=== PATIENT | male | born 1975 | race Hispanic/Latino ===

== ENCOUNTER → 2019-06-25 | Outpatient (CLI) | payer OTHER ==
[~2019-06-25] MED LIST: ASPI81TA3 OR; HYDR50TA8 OR; MIRT1TAB21 OR; SERT100T OR; WELL100T OR
--- NOTE | 2019-06-26 01:04 | REP ---
Clinical: Hand injury. Technique: AP, lateral, bilateral oblique views of the right hand. Findings: Age-related changes are appreciated along with evidence for old healed fifth metacarpal bone fracture. No acute fracture or dislocation identified. No subcutaneous emphysema or radiodense foreign body. Findings: Degenerative changes and old fifth metacarpal bone fracture. No acute fracture dislocation. Electronically Signed by Frank Mata MD 06/26/2019 12:55 A
== END ==
LOC: M WUC 19:06
PROVIDERS: ATTEND Physician Assistant
DX: M19.041 Primary osteoarthritis, right hand (principal); M79.641 Pain in right hand

== ENCOUNTER 2021-09-05 17:34 | Emergency (ER) | payer OTHER ==
[~2021-09-05] VITALS: Ht 165.1 cm; Wt 68.2 kg
--- OUTSIDE RECORDS SUMMARY | 2021-09-05 17:44 | CCD ---
Author Author [facility] Organization [facility] Address Unknown Phone Unavailable Support Name Relationship Address Phone NO, ONE Next Of Kin Unknown KYLEJUDE Next Of Kin [address] [place] [address] [place] [address] Unavailable [employer] [address] [place] [address] JESSICAMICHELE LOUIS Next Of Kin [address] [place] [address] Unavailable Re-disclosure Warning The records that you are about to access may contain information from federally-assisted alcohol or drug abuse programs. If such information is present, then the following federally mandated warning applies: This information has been disclosed to you from records protected by federal confidentiality rules (42 CFR part 2). The federal rules prohibit you from making any further disclosure of this information unless further disclosure is expressly permitted by the written consent of the person to whom it pertains or as otherwise permitted by 42 CFR part 2. A general authorization for the release of medical or other information is NOT sufficient for this purpose. The Federal rules restrict any use of the information to criminally investigate or prosecute any alcohol or drug abuse patient.The records that you are about to access may contain highly sensitive health information, the redisclosure of which is protected by Article 27-F of the [facility] Public Health law. If you continue you may have access to information: Regarding HIV / AIDS; Provided by facilities licensed or operated by the [facility] Office of Mental Health; or Provided by the [facility] Office for People With Developmental Disabilities. If such information is present, then the following [facility] mandated warning applies: This information has been disclosed to you from confidential records which are protected by state law. State law prohibits you from making any further disclosure of this information without the specific written consent of the person to whom it pertains, or as otherwise permitted by law. Any unauthorized further disclosure in violation of state law may result in a fine or half-way sentence or both. A general authorization for the release of medical or other information is NOT sufficient authorization for further disc losure. Medications No Information Insurance Providers Payer name Policy type / Coverage type Policy ID Covered republican ID Covered republican's relationship to arellano Policy [place]llano Plan Information [employer] [id number] SP [id number] [facility] [place] [id number] S [id number] [facility] [id number] SP [id number] ADMINSTRATION -O/P [id number] 18 [id number] PGBA SARLES ELIZABETH O [id number] S [id number] ACTIVE DUTY [id number] SP [id number] Problems, Conditions, and Diagnoses No Information Surgeries/Procedures No Information Results ID Date Data Source [id number] 07/03/2021 12:00:00 AM EDT [facility] Name Value Range Interpretation Code Description Data Alea rce(s) Supporting Document(s) SARS-CoV2 Rapid Antigen Negative [facility] This lab was ordered by [facility] and reported by [facility]. ID Date Data Source [id number] 12/08/2020 12:00:00 AM EST [facility] Name Value Range Interpretation Code Description Data Alea rce(s) Supporting Document(s) SARS-CoV2 Rapid Antigen Negative [facility] This lab was ordered by [facility] and reported by [facility]. Procedure Social History No Information
[2021-09-05] MEDS ORDERED: PROZ20CA11 PO (17:45)
[2021-09-05 18:17] LABS: BASO % 0.3 % (0.0-1.0); EOS % 0.2 % (0.0-3.0); LYMPH # 1.1 10^3/uL (1.5-5.0); LYMPH % 9.1 % (24.0-44.0); MEAN CORPUSCULAR HEMOGLOBIN 28.9 pg (27.0-33.0); MEAN CORPUSCULAR VOLUME 84.8 fl (80.0-96.0); MONO # 0.6 10^3/uL (0.0-0.8); MONO % 4.9 % (2.0-8.0); NEUTROPHILS # 10.2 10^3/uL (1.5-8.5); NEUTROPHILS % 85.1 % (36.0-66.0); PLATELET COUNT, AUTOMATED 257 10^3/uL (150-450); RED BLOOD COUNT 5.54 10^6/uL (4.30-6.10); WHITE BLOOD COUNT 11.9 10^3/uL (4.0-10.0)
[2021-09-05 18:43] LABS: ALBUMIN 4.4 GM/DL (3.2-5.2); ALT/SGPT 109 U/L (12-78); BILIRUBIN,DIRECT 0.2 MG/DL (0.0-0.2); BILIRUBIN,TOTAL 0.7 MG/DL (0.2-1.0); BLOOD UREA NITROGEN 15 MG/DL (7-18); CALCIUM LEVEL 9.4 MG/DL (8.5-10.1); CARBON DIOXIDE LEVEL 28 MEQ/L (21-32); CHLORIDE LEVEL 104 MEQ/L (98-107); CK-MB VALUE MASS < 1.0 NG/ML (<3.6); CPK CREATINE PHOSPHOKINASE 363 U/L (39-308); CREATININE FOR GFR 1.55 MG/DL (0.70-1.30); GLOMERULAR FILTRATION RATE 51.4 (>60); GLUCOSE, FASTING 111 MG/DL (70-100); LIPASE 96 U/L (73-393); MB/CK RELATIVE INDEX 0.28 (< OR =4); POTASSIUM SERUM 4.3 MEQ/L (3.5-5.1); SODIUM LEVEL 139 MEQ/L (136-145); TOTAL PROTEIN 8.1 GM/DL (6.4-8.2); TROPONIN I < 0.02 NG/ML (< 0.10)
--- OUTSIDE RECORDS SUMMARY | 2021-09-05 20:01 | CCD ---
Author Author [facility] Organization [facility] Address Unknown Phone Unavailable Support Name Relationship Address Phone VAISHALI WRIGHT Next Of Kin [address] [place] [address] NO, ONE Next Of Kin Unknown JUDE WRIGHT Next Of Kin [address] [place], [place] [id number] [place] [address] Unavailable [employer] [address] [place] [address] JESSICAMICHELE LOUIS Next Of Kin [address] [place] [address] Unavailable Re-disclosure Warning The records that you [...] is protected by Article 27-F of the [place] Public Health law. If you continue you may have access to information: Regarding HIV / AIDS; Provided by facilities licensed or operated by the [facility] Office of Mental Health; or Provided by the [facility] Office for People With Developmental Disabilities. If such information is present, then the following [facility] mandated warning applies: This information has been [...] law may result in a fine or longterm sentence or both. A general authorization for the release of medical or other information is NOT sufficient authorization for further disc losure. Medications No Information Insurance Providers Payer name Policy type / Coverage type Policy ID Covered green party ID Covered green party's relationship to arellano Policy [place]llano Plan Information [employer] [id number] SP [id number] [employer] [place] [id number] S [id number] [facility] [id number] SP [id number] ADMINSTRATION -O/P [id number] 18 [id number] [employer] [place] ELIZABETH O [id number] S [id number] ACTIVE DUTY [id number] SP [id number] Problems, Conditions, and Diagnoses No Information Surgeries/Procedures No Information Results ID Date Data Source 030 07/03/2021 12:00:00 AM EDT [facility] Name Value Range Interpretation Code Description Data Alea rce(s) Supporting Document(s) SARS-CoV2 Rapid Antigen Negative [facility] This lab was ordered by [facility] and reported by [facility]. ID Date Data Source [id number] 12/08/2020 12:00:00 AM EST [facility] Name Value Range Interpretation Code Description Data Alea rce(s) Supporting Document(s) SARS-CoV2 Rapid Antigen Negative [facility] and reported by [facility]. Procedure Social History No Information
[2021-09-05 20:51] LABS: CK-MB VALUE MASS < 1.0 NG/ML (<3.6); CPK CREATINE PHOSPHOKINASE 345 U/L (39-308); MB/CK RELATIVE INDEX 0.29 (< OR =4); TROPONIN I < 0.02 NG/ML (< 0.10)
[2021-09-05 21:45] VITALS: BP 113/75
--- NOTE | 2021-09-06 13:34 | ECGEPIP ---
[facility] - ED Test Date: 2021-09-05 Pat Name: ABRAN WRIGHT Department: Room: - Gender: Male Ict Developer: FADUMO : 1975 Requested By: Magdalena Vela Order Number: [id number] Reading MD: Magdalena Vela Measurements Intervals [place] Rate: 96 P: 60 VA: 136 QRS: 25 QRSD: 84 T: 51 QT: 362 QTc: 457 Interpretive Statements Normal sinus rhythm decreased rate 02/16/16 Electronically Signed on 09-06-2021 13:34:42 EDT by Magdalena Vela
== END 2021-09-05 22:09 | disposition home or self-care (01) ==
LOC: M ED 17:34
DX: R55 Syncope and collapse (principal); F43.10 Post-traumatic stress disorder, unspecified; Z88.5 Allergy status to narcotic agent; Z79.899 Other long term (current) drug therapy

== ENCOUNTER → 2022-07-20 | Outpatient (CLI) | payer OTHER ==
[~2022-07-20] MED LIST changes: +PROZ20CA11 PO
== END ==
LOC: M WUC 14:47
DX: M79.631 Pain in right forearm (principal)

== ENCOUNTER → 2022-11-08 | Outpatient (REF) | payer OTHER | LOC: M WUC 22:45 | PROVIDERS: ATTEND Physician Assistant | DX: R50.9 Fever, unspecified (principal); J06.9 Acute upper respiratory infection, unspecified ==

== ENCOUNTER → 2022-11-08 | Outpatient (CLI) | payer OTHER ==
[2022-11-08 22:50] LABS: BASO % 0.4 % (0.0-1.0); EOS # 0.3 10^3/uL (0.0-0.5); HEMATOCRIT 48.1 % (42.0-52.0); HEMOGLOBIN 15.9 g/dl (13.5-17.5); LYMPH # 1.9 10^3/uL (1.5-5.0); LYMPH % 26.7 % (24.0-44.0); MEAN CORPUSCULAR HEMOGLOBIN 29.2 pg (27.0-33.0); MEAN CORPUSCULAR HGB CONC 33.1 g/dl (32.0-36.5); MEAN CORPUSCULAR VOLUME 88.3 fl (80.0-96.0); MONO # 0.6 10^3/uL (0.0-0.8); MONO % 8.4 % (2.0-8.0); NEUTROPHILS # 4.2 10^3/uL (1.5-8.5); NEUTROPHILS % 60.2 % (36.0-66.0); PLATELET COUNT, AUTOMATED 298 10^3/uL (150-450); RED BLOOD COUNT 5.45 10^6/uL (4.30-6.10)
[2022-11-08 22:55] LABS: ALBUMIN 4.2 G/DL (3.2-5.2); ALKALINE PHOSPHATASE 83 U/L (46-116); ALT/SGPT 62 U/L (7.0-40); AST/SGOT 33 U/L (<34); BILIRUBIN,TOTAL 0.6 MG/DL (0.3-1.2); BLOOD UREA NITROGEN 15 MG/DL (9-23); CALCIUM LEVEL 9.7 MG/DL (8.5-10.1); CARBON DIOXIDE LEVEL 27 MMOL/L (20-31); CHLORIDE LEVEL 103 MMOL/L (98-107); CREATININE FOR GFR 1.23 MG/DL (0.70-1.30); GLOMERULAR FILTRATION RATE > 60.0 (>60); GLUCOSE, FASTING 90 MG/DL (60-100); POTASSIUM SERUM 4.4 MMOL/L (3.5-5.1); SODIUM LEVEL 140 MMOL/L (136-145); TOTAL PROTEIN 7.5 G/DL (5.7-8.2)
[2022-11-08 23:24] LABS: C REACTIVE PROTEIN QUANTITATIV < 0.40 MG/DL (<1.0)
[2022-11-08 23:30] LABS: ERYTHROCYTE SEDIMENTATION RATE 6 mm/hr (0-15)
== END ==
LOC: M WUC 15:19
PROVIDERS: ATTEND Physician Assistant
DX: J06.9 Acute upper respiratory infection, unspecified (principal); R50.9 Fever, unspecified

== ENCOUNTER → 2023-05-01 | Outpatient (REF) | payer OTHER | LOC: M LAB REF 20:55 | PROVIDERS: ATTEND Nurse Practitioner Family | DX: R30.0 Dysuria (principal); R10.84 Generalized abdominal pain ==

== ENCOUNTER → 2023-08-09 | Outpatient (CLI) | payer OTHER | LOC: M SOG 08:30 | PROVIDERS: ATTEND Orthopaedic Surgery | DX: M25.562 Pain in left knee (principal); M25.561 Pain in right knee ==

== ENCOUNTER → 2023-11-23 | Outpatient (REF) | payer OTHER | LOC: M LAB REF 18:05 | PROVIDERS: ATTEND Physician Assistant | DX: R19.7 Diarrhea, unspecified (principal) ==

== ENCOUNTER 2024-06-19 17:37 | Emergency (ER) | payer OTHER ==
[~2024-06-19] VITALS: Ht 165.1 cm; Wt 70.5 kg
[2024-06-19 17:38] VITALS: BP 103/72; TEMP 96.3; O2SAT 94
[2024-06-19] MEDS ORDERED: TIZA10TA PO (18:10)
[2024-06-19] MEDS ORDERED: OXYC-517 (18:10)
[2024-06-19] MEDS ORDERED: METH-1164 (18:10)
== END 2024-06-19 21:19 | disposition left against medical advice (07) ==
LOC: M ED 17:37
DX: Z53.21 Procedure and treatment not carried out due to patient leaving prior to being seen by health care provider (principal)

== ENCOUNTER 2024-08-01 16:49 | Emergency (ER) | payer OTHER ==
[~2024-08-01] VITALS: Ht 165.1 cm; Wt 71.4 kg
[~2024-08-01 16:49] MED LIST changes: +METH-1164; +OXYC-517; +TIZA10TA PO
[2024-08-01] MEDS: KETOROLAC 30 MG/ML 1ML VIAL IV ONE ×2 (18:34→19:13)
[2024-08-01] MEDS: ACETAMINOPHEN 500 MG TAB PO ONE (18:34)
[2024-08-01] MEDS: diazePAM 10MG/2ML SYRINGE IV ONE (18:34)
[2024-08-01] MEDS: LIDOCAINE 5% (LIDODERM) PATCH TD ONE (18:35)
[2024-08-01] MEDS ORDERED: PERC5TAB12 PO (21:49)
[2024-08-01] MEDS ORDERED: VALI2TAB PO (21:49)
[2024-08-01 21:52] VITALS: BP 120/79; TEMP 97.3; O2SAT 97
[2024-08-01] MEDS ORDERED: LIDO5DIS41 TD (21:53)
[2024-08-01] MEDS: diazePAM 2 MG TAB PO ONE (22:09)
[2024-08-01] MEDS: OXYCODONE/APAP 5MG/325MG(HOME DOSE PACK) PO ONE (22:10)
== END 2024-08-01 22:16 | disposition home or self-care (01) ==
LOC: M ED 16:49 → EDBD 16:49 → M ED 22:16
DX: S30.0XXA Contusion of lower back and pelvis, initial encounter (principal); M62.830 Muscle spasm of back; X50.3XXA Overexertion from repetitive movements, initial encounter; Y92.9 Unspecified place or not applicable; Y93.89 Activity, other specified; Y99.9 Unspecified external cause status; I25.2 Old myocardial infarction; M41.9 Scoliosis, unspecified; Z79.899 Other long term (current) drug therapy; Z88.5 Allergy status to narcotic agent
CPT/HCPCS: 73010; 73030; 96374; 96375; 96376; 99284; J1885; J3360

== ENCOUNTER 2024-11-06 16:47 | Emergency (ER) | payer OTHER ==
[~2024-11-06] VITALS: Ht 162.6 cm; Wt 71.4 kg
[~2024-11-06 16:47] MED LIST changes: +LIDO5DIS41 TD; +PERC5TAB12 PO; +VALI2TAB PO
[2024-11-06 17:27] LABS: HEMATOCRIT 44.2 % (42.0-52.0); HEMOGLOBIN 15.4 g/dl (13.5-17.5); MEAN CORPUSCULAR HEMOGLOBIN 29.3 pg (27.0-33.0); MEAN CORPUSCULAR HGB CONC 34.8 g/dl (32.0-36.5); MEAN CORPUSCULAR VOLUME 84.2 fl (80.0-96.0); PLATELET COUNT, AUTOMATED 244 10^3/uL (150-450); RED BLOOD COUNT 5.25 10^6/uL (4.30-6.10); WHITE BLOOD COUNT 7.5 10^3/uL (4.0-10.0)
[2024-11-06 17:51] LABS: AMPHETAMINES LEVEL URINE NEGATIVE (NEGATIVE); BARBITURATES URINE NEGATIVE (NEGATIVE)
[2024-11-06 17:52] LABS: BENZODIAZEPINES URINE NEGATIVE (NEGATIVE); CANNABINOIDS URINE POSITIVE (NEGATIVE); COCAINE METABOLITE URINE NEGATIVE (NEGATIVE); METHADONE URINE NEGATIVE (NEGATIVE); OPIATES URINE NEGATIVE (NEGATIVE); PHENCYCLIDINE URINE NEGATIVE (NEGATIVE)
[2024-11-06 17:53] LABS: ETHYL ALCOHOL (ETHANOL) < 0.003 % (0.000-0.010)
[2024-11-06 17:54] LABS: SALICYLATE LEVEL < 3.0 MG/DL (<30)
[2024-11-06 17:55] LABS: ALBUMIN 3.9 G/DL (3.2-5.2); ALKALINE PHOSPHATASE 95 U/L (40-129); ALT/SGPT 42 U/L (7.0-40); AST/SGOT 20 U/L (<34); BILIRUBIN,DIRECT 0.2 MG/DL (<0.4); BILIRUBIN,TOTAL 0.5 MG/DL (0.3-1.2); BLOOD UREA NITROGEN 9 MG/DL (9-23); CALCIUM LEVEL 9.7 MG/DL (8.5-10.1); CARBON DIOXIDE LEVEL 26 MMOL/L (20-31); CHLORIDE LEVEL 105 MMOL/L (98-107); CREATININE FOR GFR 1.01 MG/DL (0.70-1.30); GLOMERULAR FILTRATION RATE > 60.0 (>56); GLUCOSE, FASTING 99 MG/DL (60-100); POTASSIUM SERUM 4.3 MMOL/L (3.5-5.1); SODIUM LEVEL 140 MMOL/L (136-145); TOTAL PROTEIN 7.2 G/DL (5.7-8.2)
[2024-11-06] MEDS: ONDANSETRON 4MG 2ML VIAL IV ONE ×2 (17:58→19:47)
[2024-11-06] MEDS: NS (Normal Saline) 0.9% 1,000 ML IV SCH (17:58)
[2024-11-06] MEDS: KETOROLAC 30 MG/ML 1ML VIAL IV ONE (17:58)
[2024-11-06] MEDS: MECLIZINE 25 MG TABLET PO ONE (20:10)
[2024-11-06] MEDS ORDERED: BUSP15TA47 PO (21:37)
[2024-11-06] MEDS ORDERED: ROSU40TA81 PO (21:37)
[2024-11-06] MEDS ORDERED: OCUVTAB4 PO (21:37)
[2024-11-06] MEDS ORDERED: med rec comment (22:24)
[2024-11-06] MEDS ORDERED: HOME MED LIST COMPLETE! XX SCH (22:25)
[2024-11-06 22:49] VITALS: BP 124/82; TEMP 97.6; O2SAT 96
== END 2024-11-07 00:33 | disposition home or self-care (01) ==
LOC: M ED 16:47
DX: S09.90XA Unspecified injury of head, initial encounter (principal); W22.8XXA Striking against or struck by other objects, initial encounter; Y92.9 Unspecified place or not applicable; Y93.89 Activity, other specified; Y99.9 Unspecified external cause status; F43.10 Post-traumatic stress disorder, unspecified; M54.9 Dorsalgia, unspecified; Z79.899 Other long term (current) drug therapy; Z88.5 Allergy status to narcotic agent
CPT/HCPCS: 70450; 70544; 70551; 72125; 80048; 80076; 80143; 80307; 82077; 84443; 85027; 93041; 94760; 96374; 96375; 96376; 99285; J1885; J2405

== ENCOUNTER 2024-11-14 10:26 | Emergency (ER) | payer OTHER ==
[~2024-11-14] VITALS: Ht 165.1 cm; Wt 71.4 kg
[~2024-11-14 10:26] MED LIST changes: +BUSP15TA47 PO; +OCUVTAB4 PO; +ROSU40TA81 PO; +med rec comment
[2024-11-14] MEDS ORDERED: MECL-209 PO (10:46)
[2024-11-14] MEDS: MECLIZINE 25 MG TABLET PO ONE (11:00)
[2024-11-14 11:30] VITALS: BP 135/74; TEMP 98; O2SAT 97
== END 2024-11-14 11:49 | disposition home or self-care (01) ==
LOC: M ED 10:26
DX: F07.81 Postconcussional syndrome (principal); F43.10 Post-traumatic stress disorder, unspecified; Z87.820 Personal history of traumatic brain injury; Z79.899 Other long term (current) drug therapy; Z88.5 Allergy status to narcotic agent